=== PATIENT | male | born 1960 | race African-American/Black ===

== ENCOUNTER 2019-01-07 20:38 | Emergency (ER) | payer OTHER, SELFPAY ==
[~2019-01-07] VITALS: Ht 170.2 cm; Wt 81.8 kg
[~2019-01-07 20:38] MED LIST: NOCURR
[2019-01-07 20:58] VITALS: BP 162/88
[2019-01-07] MEDS ORDERED: PERTUSS(ACELL),DIPH,TET VAC/PF 0.5 ML VIAL IM ONE (22:30)
[2019-01-07] MEDS ORDERED: IBUPROFEN 600 MG TABLET PO ONE (22:30)
[2019-01-07] MEDS ORDERED: ACETAMINOPHEN 500 MG TABLET PO ONE (22:30)
[2019-01-07] MEDS ORDERED: AMOX TR/POT CLAV 875 MG/125 MG TABLET PO ONE (22:30)
== END 2019-01-07 23:16 ==
LOC: EMS 20:39
DX: S00.03XA Contusion of scalp, initial encounter (principal); F32.9 Major depressive disorder, single episode, unspecified; F12.90 Cannabis use, unspecified, uncomplicated; W50.3XXA Accidental bite by another person, initial encounter; Y93.89 Activity, other specified; Y92.89 Other specified places as the place of occurrence of the external cause; Y99.8 Other external cause status
CPT/HCPCS: 70450; 90715